=== PATIENT | male | born 1985 | race Caucasian/White ===

== ENCOUNTER 2017-03-21 14:55 | Emergency (ER) | payer BC ==
[~2017-03-21] VITALS: Ht 167.6 cm; Wt 72.6 kg
--- NOTE | 2017-03-21 15:11 | NUR ---
PT AMBULATORY TO ER BED 09. C/O BLOOD IN TH E STOOL. DENIES N/V. NO ABDOMINAL PAIN. NAD NOTED AWAITING MD MILLER.
--- NOTE | 2017-03-21 15:13 | NUR ---
DR MCKNIGHT AT BEDSIDE FOR EVAL.
--- NOTE | 2017-03-21 15:24 | NUR ---
IV LINE STARTED BLOOD DRAW AND SENT TO LAB.
[2017-03-21 15:47] LABS: BASOPHILS # (AUTO) 0.3 /CMM (0.0-0.2); BASOPHILS % (AUTO) 4.8 % (0.0-2.0); CREATININE 1.2 mg/dL (0.6-1.3); EOSINOPHILS # (AUTO) 0.4 /CMM (0.0-0.7); EOSINOPHILS % (AUTO) 6.7 % (0.0-6.0); HEMATOCRIT 47 % (39-51); HEMOGLOBIN 15.9 g/dL (13.5-17.5); LYMPHOCYTES # (AUTO) 1.8 /CMM (0.8-4.8); LYMPHOCYTES % (AUTO) 29.5 % (20.0-44.0); MEAN CORPUSCULAR HEMOGLOBIN 31 PG (26.0-33.0); MEAN CORPUSCULAR HGB CONC 34 g/dl (31.0-36.0); MEAN CORPUSCULAR VOLUME 91 fL (80-96); MONOCYTES # (AUTO) 0.4 /CMM (0.1-1.30); MONOCYTES % (AUTO) 7.1 % (2.0-12.0); NEUTROPHILS # (AUTO) 3.4 /CMM (1.8-8.9); NEUTROPHILS % (AUTO) 51.9 % (43.0-81.0); PLATELET COUNT (AUTO) 148 /CMM (150-450); POTASSIUM 4.1 mmol/L (3.5-5.1); RDW COEFFICIENT OF VARIATION 11.5 (11.5-15.0); RED BLOOD CELL COUNT(AUTO) 5.18 MIL/uL (4.5-6.0); WHITE BLOOD COUNT (AUTO) 6.3 K/uL (4.3-11.0)
[2017-03-21 15:52] LABS: ALBUMIN 4.4 g/dL (3.4-5.0); BILIRUBIN,DIRECT 0.1 mg/dL (0.0-0.2); BILIRUBIN,TOTAL 0.6 mg/dL (0.2-1.0); TOTAL PROTEIN, SERUM 8.1 g/dL (6.4-8.2)
--- NOTE | 2017-03-21 16:48 | NUR ---
Patient discharged to home in stable condition. Written and verbal after care instructions given. Patient verbalizes understanding of instruction.IV removed. Catheter intact and site benign. Pressure and 4x4 applied to site. No bleeding noted.
[2017-03-21 16:49] VITALS: BP 125/77
== END 2017-03-21 16:50 | disposition home or self-care (01) ==
LOC: ER 15:00
DX: K29.70 Gastritis, unspecified, without bleeding (principal)
CPT/HCPCS: 36415; 80048-TC; 80076-TC; 82272-TC; 83690-TC; 85025-TC; A4606; Z7610